=== PATIENT | female | born 2000 | race African-American/Black ===

== ENCOUNTER 2025-06-11 21:42 | Emergency (ER) | payer OTHER ==
[~2025-06-11] VITALS: Ht 147.3 cm; Wt 49.0 kg
[2025-06-11 22:02] VITALS: TEMP 36.6; O2SAT 99
[2025-06-11 22:50] VITALS: TEMP 97.9
[2025-06-11] MEDS: FAMOTIDINE 20MG TABLET PO ONE (22:50)
[2025-06-11] MEDS: ACETAMINOPHEN 500MG TABLET PO ONE (22:50)
[2025-06-11] MEDS: ONDANSETRON 4MG ODT PO ONE (22:51)
[2025-06-11 23:00] LABS: CLARITY URINE CLEAR (CLEAR); COLOR URINE YELLOW (YELLOW); GLUCOSE URINE NEGATIVE (NEGATIVE); KETONES URINE NEGATIVE (NEGATIVE); LEUKOCYTE ESTERASE URINE TRACE (NEGATIVE); NITRITE URINE NEGATIVE (NEGATIVE); OCCULT BLOOD URINE 1+ (NEGATIVE); PH URINE 6.5 (4.5-8.0); PROTEIN URINE NEGATIVE (NEGATIVE); SPECIFIC GRAVITY URINE 1.008 (1.005-1.030); UROBILINOGEN URINE 0.2 E.U./dL (0.2-1.0)
[2025-06-11 23:17] LABS: BASOPHILS % 0.7 % (0.0-2.0); EOSINOPHILS % 1.2 % (0.0-5.0); HEMATOCRIT. 36.5 % (36.0-48.0); HEMOGLOBIN. 12.5 g/dL (12.0-16.0); LYMPHOCYTES % 46.2 % (20.0-50.0); MEAN PLATELET VOLUME 9.8 fl (7.4-10.4); MONOCYTES % 6.4 % (2.0-8.0); NEUTROPHILS % 45.5 % (40.0-76.0); PLATELET 172 x1000/uL (130-400); RED BLOOD CELL COUNT 4.06 mill/uL (4.2-5.4); RED CELL DISTRIBUTION WIDTH 14.1 % (11.6-14.6)
[2025-06-11 23:21] LABS: INR 1.1
[2025-06-11 23:27] LABS: BACTERIA URINE 1+; SQUAMOUS EPITHELIAL CELL URINE 1+ /lpf (RARE/1+); WBC URINE 0-2 /hpf (0-2)
[2025-06-11 23:28] LABS: HCG SCREEN NEGATIVE
[2025-06-11 23:29] LABS: CREATININE 0.7 mg/dL (0.6-1.0); UREA NITROGEN BLOOD 7 mg/dL (9-23)
[2025-06-11 23:30] LABS: TROPONIN I HIGH SENSITIVITY < 4 ng/L (3.0-34)
[2025-06-11 23:31] LABS: ASPARTATE AMINOTRANSFERASE 20 IU/L (<34); BILIRUBIN DIRECT 0.1 mg/dL (<=3.0); BILIRUBIN TOTAL 0.4 mg/dL (0.1-1.0); PROTEIN TOTAL 7.3 g/dL (6.0-8.3)
[2025-06-12 00:53] VITALS: BP 115/82; PULSE 71; RESP 14; O2SAT 100
== END 2025-06-12 00:55 | disposition home or self-care (01) ==
LOC: ER 21:42
DX: R10.13 Epigastric pain (principal)
CPT/HCPCS: 99284; 74176; 71045; 80076; 80048; 81003; 84703; 83690; 85025; 85610; 84484; 36415; Q0162

== ENCOUNTER 2025-08-13 22:19 | Emergency (ER) | payer OTHER ==
[~2025-08-13] VITALS: Ht 147.3 cm; Wt 49.0 kg
[2025-08-13 22:40] VITALS: O2SAT 97
[2025-08-13] MEDS ORDERED: AMOX1TAB16 MT (23:08)
[2025-08-13] MEDS ORDERED: IBUP-2028 MT (23:08)
[2025-08-13] MEDS: IBUPROFEN 400MG TABLET PO ONE (23:26)
[2025-08-13 23:30] VITALS: BP 116/71; PULSE 84; RESP 16; TEMP 36.9; O2SAT 100
== END 2025-08-13 23:35 | disposition home or self-care (01) ==
LOC: ER 22:19
DX: K02.9 Dental caries, unspecified (principal); K08.89 Other specified disorders of teeth and supporting structures
CPT/HCPCS: 99283

== ENCOUNTER 2025-09-24 16:41 | Inpatient (IN) | payer MEDICAID, OTHER ==
[~2025-09-24] VITALS: Ht 154.9 cm; Wt 46.3 kg
[~2025-09-24 16:41] MED LIST: AMOX1TAB16 MT; IBUP-2028 MT
[2025-09-24 16:50] VITALS: O2SAT 100
[2025-09-24] MEDS: SODIUM CHLORIDE 0.9% (SEPSIS BOLUS) IV ONE (17:41)
[2025-09-24] MEDS: CEFTRIAXONE 1GM/50ML 50 ML IV ONE (17:41)
[2025-09-24 17:44] LABS: BASOPHILS % 0.6 % (0.0-2.0); EOSINOPHILS % 1.4 % (0.0-5.0); HEMATOCRIT. 37.8 % (36.0-48.0); HEMOGLOBIN. 12.3 g/dL (12.0-16.0); LYMPHOCYTES % 37.1 % (20.0-50.0); MEAN PLATELET VOLUME 9.7 fl (7.4-10.4); MONOCYTES % 7.1 % (2.0-8.0); NEUTROPHILS % 53.8 % (40.0-76.0); PLATELET 142 x1000/uL (130-400); RED BLOOD CELL COUNT 4.21 mill/uL (4.2-5.4); RED CELL DISTRIBUTION WIDTH 14.0 % (11.6-14.6)
[2025-09-24 17:55] LABS: CREATININE 0.6 mg/dL (0.6-1.0); TROPONIN I HIGH SENSITIVITY < 4 ng/L (3.0-34); UREA NITROGEN BLOOD 7 mg/dL (9-23)
[2025-09-24 17:56] LABS: HCG SCREEN NEGATIVE; PROTEIN TOTAL 7.2 g/dL (6.0-8.3)
[2025-09-24 17:57] LABS: ASPARTATE AMINOTRANSFERASE 21 IU/L (<34); BILIRUBIN DIRECT 0.1 mg/dL (<=3.0); BILIRUBIN TOTAL 0.4 mg/dL (0.1-1.0)
[2025-09-24 17:59] LABS: INR 1.0
[2025-09-24] MEDS: AZITHROMYCIN 500MG/250ML 250 ML IV ONE (18:07)
[2025-09-24] MEDS: KETOROLAC 15MG/ML VIAL IV ONE (19:50)
[2025-09-24 21:18] LABS: CLARITY URINE CLEAR (CLEAR); COLOR URINE YELLOW (YELLOW); GLUCOSE URINE NEGATIVE (NEGATIVE); KETONES URINE NEGATIVE (NEGATIVE); LEUKOCYTE ESTERASE URINE NEGATIVE (NEGATIVE); NITRITE URINE NEGATIVE (NEGATIVE); OCCULT BLOOD URINE NEGATIVE (NEGATIVE); PH URINE 6.5 (4.5-8.0); PROTEIN URINE NEGATIVE (NEGATIVE); SPECIFIC GRAVITY URINE 1.060 (1.005-1.030); UROBILINOGEN URINE 0.2 E.U./dL (0.2-1.0)
[2025-09-24] MEDS: ACETAMINOPHEN 325MG TABLET PO PRN (22:29)
[2025-09-24] MEDS: MAGNESIUM/ALUMINUM HYDROXIDE/SIMETHICONE 30ML UDC PO PRN (22:29)
[2025-09-24] MEDS ORDERED: IOHEXOL-350 100 ML BOTTLE ONE (22:55)
[2025-09-25 01:33] VITALS: BP 102/66; PULSE 85; RESP 14; TEMP 36.8072
[2025-09-25 02:05] LABS: TROPONIN I HIGH SENSITIVITY < 4 ng/L (3.0-34)
[2025-09-25] MEDS: ACETAMINOPHEN 325MG TABLET PO PRN (04:12)
[2025-09-25 06:00] VITALS: BP 118/70; PULSE 80; RESP 20; TEMP 36.8; O2SAT 98
[2025-09-25 06:48] LABS: BASOPHILS % 0.5 % (0.0-2.0); EOSINOPHILS % 1.0 % (0.0-5.0); HEMATOCRIT. 32.9 % (36.0-48.0); HEMOGLOBIN. 10.9 g/dL (12.0-16.0); LYMPHOCYTES % 34.1 % (20.0-50.0); MEAN PLATELET VOLUME 10.8 fl (7.4-10.4); MONOCYTES % 6.5 % (2.0-8.0); NEUTROPHILS % 57.9 % (40.0-76.0); PLATELET 139 x1000/uL (130-400); RED BLOOD CELL COUNT 3.72 mill/uL (4.2-5.4); RED CELL DISTRIBUTION WIDTH 13.9 % (11.6-14.6)
[2025-09-25 07:02] LABS: TROPONIN I HIGH SENSITIVITY < 4 ng/L (3.0-34)
[2025-09-25 07:16] LABS: CREATININE 0.6 mg/dL (0.6-1.0); TRIGLYCERIDE 32 mg/dL (0-150); UREA NITROGEN BLOOD 8 mg/dL (9-23)
[2025-09-25 07:17] LABS: LDL CHOLESTEROL 86 mg/dL (5-100)
[2025-09-25 07:20] LABS: T4 FREE 1.18 ng/dL (0.89-1.76)
[2025-09-25 08:00] VITALS: BP 93/50; PULSE 63; RESP 17; TEMP 36.1; O2SAT 98
[2025-09-25] MEDS: THIAMINE HCL 100MG TABLET PO SCH (08:56)
[2025-09-25 11:51] LABS: *AMPHETAMINES SCREEN URINE NEGATIVE (NEGATIVE); *BARBITURATES SCREEN URINE NEGATIVE (NEGATIVE); *BENZODIAZEPINES SCREEN URINE NEGATIVE (NEGATIVE); *COCAINE SCREEN URINE NEGATIVE (NEGATIVE); CANNABINOID URINE SCREEN NEGATIVE (NEGATIVE); ECSTASY MDMA SCREEN URINE NEGATIVE (NEGATIVE); METHADONE URINE SCREEN NEGATIVE (NEGATIVE); OPIATES URINE SCREEN NEGATIVE (NEGATIVE); PHENCYCLIDINE URINE SCREEN NEGATIVE (NEGATIVE)
[2025-09-25 12:00] VITALS: BP 104/52; PULSE 83; RESP 18; TEMP 36.5; O2SAT 100
[2025-09-25 16:00] VITALS: BP 119/60; PULSE 72; RESP 19; TEMP 36.7; O2SAT 98
[2025-09-25 17:49] VITALS: BP 119/60; PULSE 79; RESP 18; TEMP 97.9
== END 2025-09-25 19:00 | disposition home or self-care (01) | DRG 203 ==
LOC: ER 16:41 → 8WST 19:46 → EDBEDREQ 20:02 → EDBEDREQTM 20:02 → ENRESERV 23:44
PROVIDERS: ADMIT Student in an Organized Health Care Education/Training Program; ATTEND Student in an Organized Health Care Education/Training Program
DX: R07.89 Other chest pain (principal); R00.0 Tachycardia, unspecified; R06.02 Shortness of breath; Z79.899 Other long term (current) drug therapy
CPT/HCPCS: 36415; 71045; 71275; 80048; 80061; 80076; 80305; 81003; 83605; 83735; 83880; 84145; 84439; 84443; 84484; 84703; 85025; 93005; 93306; 99291; A4606; J0456; J0696; J1885; J7030; Q9967